=== PATIENT | male | born 1950 | race Caucasian/White ===

== ENCOUNTER 2016-06-06 13:28 | Inpatient (IN) | payer OTHER ==
[2016-06-06 19:08] VITALS: BMI 23.6
--- NOTE | 2016-06-06 20:57 | HP ---
CIWA Score - CIWA Score Nausea/Vomitin-Mild Nausea/No Vomiting Muscle Tremors: 4-Moderate,w/Arms Extend Anxiety: 4-Mod. Anxious/Guarded Agitation: 4-Moderately Restless Paroxysmal Sweats: 1-Minimal Palms Moist Orientation: 3-Disoriented Date>2 days Tacttile Disturbances: 0-None Auditory Disturbances: 0-None Visual Disturbances: 0-None Headache: 0-None Present CIWA-Ar Total Score: 17 Admission ROS S - HPI Chief Complaint: WITHDRAWAL SX Allergies/Adverse Reactions: Allergies Allergy/AdvReac Type Severity Reaction Status Date / Time No Known Allergies Allergy Verified 06/06/16 19:22 History of Present Illness: 65 YEARS OLD MALE WITH LONG HISTORY OF ALCOHOL NICOTINE DEPENDENCE HAS ASTHMA DRY SKIN CANE FOR AMBULATION IS ADMITTED TO DETOX Exam Limitations: No Limitations - Ebola screening Have you traveled outside of the country in the last 21 days: No Have you had contact with anyone from an Ebola affected area: No Have you been sick,other than usual withdrawal symptoms: No Do you have a fever: No - Review of Systems Constitutional: Chills, Changes in sleep, Weight Stable EENT: reports: No Symptoms Reported Respiratory: reports: SOB with Exertion, Productive cough (YELLOWISH) Cardiac: reports: No Symptoms Reported GI: reports: Nausea, Poor Fluid Intake, Abdominal cramping : reports: No Symptoms Reported Musculoskeletal: reports: Joint Pain (LEFT ANKLE TO LEFT KNEE TO LEFT HIP) Integumentary: reports: Change in Color (HYPERPIGMENTATION BOTH HANDS AND RIGHT LOWER LEG) Neuro: reports: Tremors Endocrine: reports: No Symptoms Reported Hematology: reports: No Symptoms Reported Psychiatric: reports: Judgement Intact, Mood/Affect Appropiate Other Systems: Reviewed and Negative Patient History - Patient Medical History Hx Anemia: No Hx Asthma: Yes (Pt is on MDI) Hx Chronic Obstructive Pulmonary Disease (COPD): Yes Hx Cancer: No Hx Cardiac Disorders: No Hx Congestive Heart Failure: No Hx Hypertension: No Hx Hypercholesterolemia: No Hx Pacemaker: No HX Cerebrovascular Accident: No Hx Seizures: No Hx Dementia: No Hx Diabetes: No Hx Gastrointestinal Disorders: No Hx Liver Disease: No Hx Genitourinary Disorders: No Hx Sexually Transmitted Disorders: No Hx Renal Disease (ESRD): No Hx Thyroid Disease: No Hx Human Immunodeficiency Virus (HIV): No Hx Hepatitis C: No Hx Depression: No Hx Suicide Attempt: No Hx Bipolar Disorder: No Hx Schizophrenia: No - Patient Surgical History Past Surgical History: Yes Hx Neurologic Surgery: No Hx Cataract Extraction: No Hx Cardiac Surgery: No Hx Lung Surgery: No Hx Breast Surgery: No Hx Breast Biopsy: No Hx Abdominal Surgery: No Hx Appendectomy: No Hx Cholecystectomy: No Hx Genitourinary Surgery: No Hx Orthopedic Surgery: Yes (L foot fx and R elbow fx [id number]) Anesthesia Reaction: No - PPD History Previous Implant?: Yes Documented Results: Negative w/o proof Implanted On Prior [facility] Admission?: No PPD to be Administered?: Yes - Smoking Cessation Smoking history: Current every day smoker Have you smoked in the past 12 months: Yes Aproximately how many cigarettes per day: 30 Cigars Per Day: 0 Hx Chewing Tobacco Use: No Initiated information on smoking cessation: Yes 'Breaking Loose' booklet given: 06/06/16 - Substance & Tx. History Hx Alcohol Use: Yes Hx Substance Use: Yes Substance Use Type: Alcohol, Heroin Hx Substance Use Treatment: Yes - Substances Abused Alcohol Route: Oral Frequency: Daily Amount used: 4-5 PINTS OF WINE +PINT BRAINDAY Age of first use: 15 Date of Last Use: 06/06/16 Family Disease History - Family Disease History Family Disease History: Diabetes: Mother, [place]: Brother (), Other: Father () Admission Physical Exam BHS - Vital Signs Vital Signs: Vital Signs - 24 hr 06/06/16 19:07 Temperature 97.1 F L Pulse Rate 75 Respiratory 18 Rate Blood Pressure 122/76 - Physical General Appearance: Yes: Appropriately Dressed, Mild Distress, Alcohol on Breath , Tremorous, Irritable, Sweating, Anxious HEENTM: Yes: Hearing grossly Normal, Normal ENT Inspection, Normocephalic, Normal Voice Respiratory: Yes: Chest Non-Tender, No Respiratory Distress, No Accessory Muscle Use Neck: Yes: Supple, Trachea in good position Breast: Yes: Breasts Symetrical Cardiology: Yes: Regular Rhythm, Regular Rate, S1, S2 Abdominal: Yes: Non Tender, Soft Genitourinary: Yes: Within Normal Limits Back: Yes: Normal Inspection Musculoskeletal: Yes: Gait Steady (CANE), Back pain, Muscle weakness (LEFT LEG) Extremities: Yes: Non-Tender, Tremors Neurological: Yes: Alert, Motor Strength 5/5, Normal Mood/Affect, Normal Response Integumentary: Yes: Warm Lymphatic: Yes: Within Normal Limits - Diagnostic (1) Alcohol dependence with uncomplicated withdrawal Current Visit: Yes Status: Acute (2) Methadone maintenance therapy patient Current Visit: Yes Status: Acute Comment: 70 MG VERIFICATION PENDING (3) Dry skin dermatitis Current Visit: Yes Status: Acute (4) Pruritus Current Visit: Yes Status: Acute (5) Use of cane as ambulatory aid Current Visit: Yes Status: Acute (6) Asthma Current Visit: Yes Status: Acute Qualifiers: Asthma severity: mild persistent Asthma complication type: with status asthmaticus Qualified Code(s): J45.32 - Mild persistent asthma with status asthmaticus (7) Weakness of left leg Current Visit: Yes Status: Acute Cleared for Admission S - Detox or Rehab [facility] Level of Care: Medically Managed Detox Regimen/Protocol: Librium [facility] Breath Alcohol Content Breath Alcohol Content: 0.177 Urine Drug Screen - Results Drug Screen Negative: No Urine Drug Screen Results: BZO-Benzodiazepines, MTD-Methadone
[2016-06-06] MEDS ORDERED: LOPERAMIDE HCL 2 MG CAPSULE PO PRN (21:13)
[2016-06-06] MEDS ORDERED: chlordiazePOXIDE HCL 25 MG CAPSULE PO ONE (21:13)
[2016-06-06] MEDS ORDERED: MENTHOL/PHENOL 1 EACH UD MM PRN (21:13)
[2016-06-06] MEDS ORDERED: IBUPROFEN 400 MG TABLET (FP) PO PRN (21:13)
[2016-06-06] MEDS ORDERED: ACETAMINOPHEN 325 MG TABLET (FP) PO PRN (21:13)
[2016-06-06] MEDS ORDERED: MAGNESIUM HYDROX 2400MG/30ML ORAL SUSPENSION 30 ML CUP PO PRN (21:13)
[2016-06-06] MEDS ORDERED: guaiFENesin/D-METHORPHAN HB 10 ML UNIT-DOSE CUPS PO PRN (21:13)
[2016-06-06] MEDS ORDERED: P-EPHED 60MG/TRIPROLIDI 2.5MG TABLET PO PRN (21:13)
[2016-06-06] MEDS ORDERED: NICOTINE POLACRILEX 4 MG GUM BC PRN (21:13)
[2016-06-06] MEDS ORDERED: MAG HYDROX/AL HYDROX/SIMETH 30 ML UNIT-DOSE CUP PO PRN (21:13)
[2016-06-06] MEDS ORDERED: diphenhydrAMINE HCL 50 MG CAPSULE PO PRN (21:13)
[2016-06-06] MEDS ORDERED: chlordiazePOXIDE HCL 25 MG CAPSULE PO PRN (21:13)
[2016-06-06] MEDS ORDERED: MAGNESIUM CITRATE 300 ML BOTTLE PO PRN (21:13)
[2016-06-06] MEDS ORDERED: ALBUTEROL SO4 6.7 GM HFA INHALER IH PRN (21:15)
[2016-06-06] MEDS ORDERED: COLLOIDAL OATMEAL 1 BAR EACH TP PRN (21:17)
[2016-06-06] MEDS: THIAMINE HCL 100 MG TABLET (FP) PO SCH (21:49)
[2016-06-06] MEDS: AMMONIUM LACTATE 12% LOTION 225 GM BOTTLE TP SCH (21:56)
[2016-06-06] MEDS: MINERAL OIL/PETROLAT/WATER TOPICAL CREAM 113 GM JAR TP SCH (21:56)
[2016-06-06] MEDS: chlordiazePOXIDE HCL 25 MG CAPSULE PO SCH (23:01)
[2016-06-07 01:04] LABS: URINE APPEARANCE CLEAR; URINE BILIRUBIN NEGATIVE (NEGATIVE); URINE BLOOD NEGATIVE (NEGATIVE); URINE COLOR AMBER; URINE GLUCOSE (UA) NEGATIVE (NEGATIVE); URINE KETONE NEGATIVE (NEGATIVE); URINE LEUK ESTERASE NEGATIVE (NEGATIVE); URINE NITRITE NEGATIVE (NEGATIVE); URINE PROTEIN NEGATIVE (NEGATIVE); URINE UROBILINOGEN 4.0 E.U/dl E.U./dl (0.2-1.0)
[2016-06-07] MEDS: chlordiazePOXIDE HCL 25 MG CAPSULE PO SCH ×4 (05:51→22:03)
[2016-06-07] MEDS ORDERED: METHADONE HCL 10 MG TABLET PO ONE (08:20)
[2016-06-07] MEDS ORDERED: METHADONE 40 MG, METHADONE 30 MG PO ONE (08:25)
[2016-06-07] MEDS ORDERED: METHADONE HCL 10 MG TABLET ONE (09:38)
[2016-06-07] MEDS ORDERED: METHADONE HCL 40 MG DISPERSABLE TABLET ONE (09:39)
[2016-06-07 09:50] LABS: MCH 35.2 pg (25.7-33.7); MCHC 33.2 g/dl (32.0-35.9); MEAN PLT VOLUME 11.4 fl (7.5-11.1); PLATELET COUNT 91 K/MM3 (134-434); RDW 15.9 % (11.9-15.9); WHITE BLOOD COUNT 5.7 K/mm3 (4.0-10.0)
[2016-06-07 10:08] LABS: ALK PHOS 638 U/L (45-117); ANION GAP 9 (8-16); BILIRUBIN,TOTAL 0.9 mg/dL (0.2-1.0); CALCIUM 7.7 mg/dL (8.5-10.1); CO2 28 mmol/L (21-32); COCKROFT - GAULT 111.8; CREATININE 0.6 mg/dL (0.7-1.3); GLUCOSE,RANDOM 73 mg/dL (74-106); SGOT/AST 165 U/L (15-37); SGPT/ALT 61 U/L (12-78)
--- NOTE | 2016-06-07 10:53 | PN ---
[facility] CIWA - CIWA Score Nausea/Vomitin-No Nausea/No Vomiting Muscle Tremors: 4-Moderate,w/Arms Extend Anxiety: 4-Mod. Anxious/Guarded Agitation: 4-Moderately Restless Paroxysmal Sweats: 1-Minimal Palms Moist Orientation: 0-Oriented Tacttile Disturbances: 3-Moderate Itch/Numb/Burn Auditory Disturbances: 0-None Visual Disturbances: 0-None Headache: 0-None Present CIWA-Ar Total Score: 16 S Progress Note (SOAP) Subjective: ANXIETY,SWEATS/CHILLS,TREMORS,INTERMITTENT SLEEP Objective: 06/07/16 10:53 Vital Signs Temperature 98.5 F 06/07/16 09:27 Pulse Rate 90 06/07/16 09:27 Respiratory Rate 20 06/07/16 09:27 Blood Pressure 112/70 06/07/16 09:27 O2 Sat by Pulse Oximetry (%) Laboratory Last Values WBC 5.7 K/mm3 (4.0-10.0) 06/07/16 06:00 RBC 3.49 M/mm3 (4.00-5.60) L 06/07/16 06:00 Hgb 12.3 GM/dL (11.7-16.9) 06/07/16 06:00 Hct 37.0 % (35.4-49) 06/07/16 06:00 MCV 106.0 fl (80-96) H 06/07/16 06:00 MCHC 33.2 g/dl (32.0-35.9) 06/07/16 06:00 RDW 15.9 % (11.9-15.9) 06/07/16 06:00 Plt Count 91 K/MM3 (134-434) L 06/07/16 06:00 MPV 11.4 fl (7.5-11.1) H 06/07/16 06:00 Sodium 141 mmol/L (136-145) 06/07/16 06:00 Potassium 3.6 mmol/L (3.5-5.1) 06/07/16 06:00 Chloride 104 mmol/L (98-107) 06/07/16 06:00 Carbon Dioxide 28 mmol/L (21-32) 06/07/16 06:00 Anion Gap 9 (8-16) 06/07/16 06:00 BUN 13 mg/dL (7-18) 06/07/16 06:00 Creatinine 0.6 mg/dL (0.7-1.3) L 06/07/16 06:00 Creat Clearance w eGFR > 60 (>60) 06/07/16 06:00 Random Glucose 73 mg/dL (74-106) L 06/07/16 06:00 Calcium 7.7 mg/dL (8.5-10.1) L 06/07/16 06:00 Total Bilirubin 0.9 mg/dL (0.2-1.0) 06/07/16 06:00 AST 165 U/L (15-37) H 06/07/16 06:00 ALT 61 U/L (12-78) 06/07/16 06:00 Alkaline Phosphatase 638 U/L (45-117) H 06/07/16 06:00 Total Protein 7.0 g/dl (6.4-8.2) 06/07/16 06:00 Albumin 3.0 g/dl (3.4-5.0) L 06/07/16 06:00 Urine Color [place] 06/06/16 23:02 Urine Appearance Clear 06/06/16 23:02 Urine pH 5.0 (5.0-8.0) 06/06/16 23:02 Ur Specific [place] 1.026 (1.001-1.035) 06/06/16 23:02 Urine Protein Negative (NEGATIVE) 06/06/16 23:02 Urine Glucose (UA) Negative (NEGATIVE) 06/06/16 23:02 Urine Ketones Negative (NEGATIVE) 06/06/16 23:02 Urine Blood Negative (NEGATIVE) 06/06/16 23:02 Urine Nitrite Negative (NEGATIVE) 06/06/16 23:02 Urine Bilirubin Negative (NEGATIVE) 06/06/16 23:02 Urine Urobilinogen 4.0 e.u/dl E.U./dl (0.2-1.0) 06/06/16 23:02 Ur Leukocyte Esterase Negative (NEGATIVE) 06/06/16 23:02 Assessment: 06/07/16 10:53 WITHDRAWAL SX Plan: CONTINUE DETOX
--- NOTE | 2016-06-07 11:48 | EKG ---
Test Reason : Blood Pressure : / mmHG Vent. Rate : 075 BPM Atrial Rate : 075 BPM P-R Int : 154 ms QRS Dur : 090 ms QT Int : 444 ms P-R-T Axes : 082 -04 -27 degrees QTc Int : 495 ms NORMAL SINUS RHYTHM LOW VOLTAGE QRS NONSPECIFIC ST ABNORMALITY PROLONGED QT ABNORMAL ECG NO PREVIOUS ECGS AVAILABLE Confirmed by JONATHAN KOVACS MD ([id number]) on 06/07/2016 11:47:51 AM Referred By: Confirmed By:JONATHAN KOVACS MD
[2016-06-07] MEDS: AMMONIUM LACTATE 12% LOTION 225 GM BOTTLE TP SCH ×2 (12:00→21:47)
[2016-06-07] MEDS: NICOTINE 21 MG/24 HOURS TOPICAL PATCH TD SCH (12:01)
[2016-06-07] MEDS: PRENATAL VITAMINS W/ FOLIC ACID TABLET (FP) PO SCH (12:01)
[2016-06-07] MEDS: MINERAL OIL/PETROLAT/WATER TOPICAL CREAM 113 GM JAR TP SCH (21:47)
[2016-06-07] MEDS: THIAMINE HCL 100 MG TABLET (FP) PO SCH (21:48)
[2016-06-08] MEDS ORDERED: METHADONE HCL 10 MG TABLET ONE (05:13)
[2016-06-08] MEDS ORDERED: METHADONE HCL 40 MG DISPERSABLE TABLET ONE (05:13)
[2016-06-08] MEDS ORDERED: METHADONE HCL 10 MG TABLET PO SCH (06:00)
[2016-06-08] MEDS: METHADONE 40 MG, METHADONE 30 MG PO SCH (06:28)
[2016-06-08] MEDS: chlordiazePOXIDE HCL 25 MG CAPSULE PO SCH ×3 (06:28→18:01)
[2016-06-08] MEDS: PRENATAL VITAMINS W/ FOLIC ACID TABLET (FP) PO SCH (10:22)
[2016-06-08] MEDS: NICOTINE 21 MG/24 HOURS TOPICAL PATCH TD SCH (10:24)
[2016-06-08] MEDS: AMMONIUM LACTATE 12% LOTION 225 GM BOTTLE TP SCH ×2 (10:24→23:17)
--- NOTE | 2016-06-08 13:40 | PN ---
[facility] CIWA - CIWA Score Nausea/Vomitin-No Nausea/No Vomiting Muscle Tremors: 4-Moderate,w/Arms Extend Anxiety: 4-Mod. Anxious/Guarded Agitation: 3 Paroxysmal Sweats: 3 Orientation: 0-Oriented Tacttile Disturbances: 1-Very Mild Itch/Numbness Auditory Disturbances: 0-None Visual Disturbances: 0-None Headache: 0-None Present CIWA-Ar Total Score: 15 BHS Progress Note (SOAP) Subjective: Anxiety,tremors,sweating,interrupted sleep,restless Objective: 06/08/16 13:39 Vital Signs - 8 hr 06/08/16 06/08/16 06:46 10:39 Temperature 96.2 F L 96.8 F L Pulse Rate 74 77 Respiratory 18 18 Rate Blood Pressure 127/75 114/69 Laboratory Last Values WBC 5.7 K/mm3 (4.0-10.0) 06/07/16 06:00 RBC 3.49 M/mm3 (4.00-5.60) L 06/07/16 06:00 Hgb 12.3 GM/dL (11.7-16.9) 06/07/16 06:00 Hct 37.0 % (35.4-49) 06/07/16 06:00 MCV 106.0 fl (80-96) H 06/07/16 06:00 MCHC 33.2 g/dl (32.0-35.9) 06/07/16 06:00 RDW 15.9 % (11.9-15.9) 06/07/16 06:00 Plt Count 91 K/MM3 (134-434) L 06/07/16 06:00 MPV 11.4 fl (7.5-11.1) H 06/07/16 06:00 Sodium 141 mmol/L (136-145) 06/07/16 06:00 Potassium 3.6 mmol/L (3.5-5.1) 06/07/16 06:00 Chloride 104 mmol/L (98-107) 06/07/16 06:00 Carbon Dioxide 28 mmol/L (21-32) 06/07/16 06:00 Anion Gap 9 (8-16) 06/07/16 06:00 BUN 13 mg/dL (7-18) 06/07/16 06:00 Creatinine 0.6 mg/dL (0.7-1.3) L 06/07/16 06:00 Creat Clearance w eGFR > 60 (>60) 06/07/16 06:00 Random Glucose 73 mg/dL (74-106) L 06/07/16 06:00 Calcium 7.7 mg/dL (8.5-10.1) L 06/07/16 06:00 Total Bilirubin 0.9 mg/dL (0.2-1.0) 06/07/16 06:00 AST 165 U/L (15-37) H 06/07/16 06:00 ALT 61 U/L (12-78) 06/07/16 06:00 Alkaline Phosphatase 638 U/L (45-117) H 06/07/16 06:00 Total Protein 7.0 g/dl (6.4-8.2) 06/07/16 06:00 Albumin 3.0 g/dl (3.4-5.0) L 06/07/16 06:00 Urine Color Diana 06/06/16 23:02 Urine Appearance Clear 06/06/16 23:02 Urine pH 5.0 (5.0-8.0) 06/06/16 23:02 Ur Specific [place] 1.026 (1.001-1.035) 06/06/16 23:02 Urine Protein Negative (NEGATIVE) 06/06/16 23:02 Urine Glucose (UA) Negative (NEGATIVE) 06/06/16 23:02 Urine Ketones Negative (NEGATIVE) 06/06/16 23:02 Urine Blood Negative (NEGATIVE) 06/06/16 23:02 Urine Nitrite Negative (NEGATIVE) 06/06/16 23:02 Urine Bilirubin Negative (NEGATIVE) 06/06/16 23:02 Urine Urobilinogen 4.0 e.u/dl E.U./dl (0.2-1.0) 06/06/16 23:02 Ur Leukocyte Esterase Negative (NEGATIVE) 06/06/16 23:02 RPR Titer Nonreactive (NONREACTIVE) 06/07/16 06:00 labs noted Assessment: 06/08/16 13:39 Withdrawal sx. Plan: Continue detox
--- NOTE | 2016-06-08 17:03 | CONSULT ---
[facility] Psychiatric Consult - Data Date of interview: 06/08/16 Admission source: [facility] Identifying data: First admission to [facility] for this 65 y/0 male seeking detox treatment for alcohol and opioid dependence.Patient is ,a father of seven,domiciled (lives with daughter),disabled and supported on SSI benefits. Substance Abuse History: - Smoking Cessation. Smoking history: Current every day smoker. Have you smoked in the past 12 months: Yes. Aproximately how many cigarettes per day: 30. Cigars Per Day: 0. Hx Chewing Tobacco Use: No. Initiated information on smoking cessation: Yes. 'Breaking Loose' booklet given : 06/06/16. - Substance & Tx. History. Hx Alcohol Use: Yes. Hx Substance Use : Yes. Substance Use Type: Alcohol, Heroin. Hx Substance Use Treatment: Yes. - Substances Abused. Alcohol. Route: Oral. Frequency: Daily. Amount used : 4-5 PINTS OF WINE +PINT BRAINDAY. Age of first use: 15. Date of Last Use: . Confirmed by the patient. Medical History: Bronchial asthma and bilateral edema of lower extremities.Noted deformation of left foot and history of orthosurgery for fracture of right elbow/left foot (2008). Psychiatric History: Patient denies. Physical/Sexual Abuse/Trauma History: Patient denies. Additional Comment: Urine Drug Screen Results: BZO-Benzodiazepines, MTD- Methadone.Noted. Mental Status Exam - Mental Status Exam Alert and Oriented to: Time (partial orientation : month,day of week .Incorrect about year : 2015 instead of 2016), Place, Person Cognitive Function: Good Patient Appearance: Unkempt, Disheveled (looks older than stated age,short stature,overweight) Mood: Sad, Anxious, Apprehensive Affect: Constricted Patient Behavior: Sedated (light sedation), Fatigued Speech Pattern: Delayed, Slurred Voice Loudness: Moderately Soft/Quiet Thought Process: Goal Oriented Hallucinations: Denies Suicidal Ideation: Denies Homicidal Ideation: Denies Insight/Judgement: Poor Sleep: Fair Appetite: Good Gait/Station: Other (walks with a cane) Psychiatric Findings - Problem List ([place] 1, 2,3) (1) Alcohol dependence with uncomplicated withdrawal Current Visit: Yes Status: Acute (2) Opioid dependence on agonist therapy Current Visit: Yes Status: Acute (3) Nicotine dependence Current Visit: Yes Status: Acute (4) Asthma Current Visit: Yes Status: Chronic Qualifiers: Asthma severity: mild persistent Asthma complication type: with status asthmaticus Qualified Code(s): J45.32 - Mild persistent asthma with status asthmaticus (5) Dry skin dermatitis Current Visit: Yes Status: Chronic (6) Weakness of left leg Current Visit: Yes Status: Chronic (7) Use of cane as ambulatory aid Current Visit: Yes Status: Chronic - Initial Treatment Plan Initial Treatment Plan: Psychoeducation.Detoxification.Observation.Fall precautions (wheelchair made available to the patient).
[2016-06-08] MEDS: MINERAL OIL/PETROLAT/WATER TOPICAL CREAM 113 GM JAR TP SCH (23:17)
[2016-06-08] MEDS: chlordiazePOXIDE 5 MG CAPSULE PO SCH (23:18)
[2016-06-08] MEDS: THIAMINE HCL 100 MG TABLET (FP) PO SCH (23:18)
[2016-06-09] MEDS ORDERED: METHADONE HCL 40 MG DISPERSABLE TABLET ONE (04:40)
[2016-06-09] MEDS ORDERED: METHADONE HCL 10 MG TABLET ONE (04:40)
[2016-06-09] MEDS: chlordiazePOXIDE 5 MG CAPSULE PO SCH ×3 (06:13→17:51)
[2016-06-09] MEDS: METHADONE 40 MG, METHADONE 30 MG PO SCH (06:13)
[2016-06-09] MEDS: NICOTINE 21 MG/24 HOURS TOPICAL PATCH TD SCH (10:41)
[2016-06-09] MEDS: AMMONIUM LACTATE 12% LOTION 225 GM BOTTLE TP SCH ×2 (10:41→22:48)
[2016-06-09] MEDS: PRENATAL VITAMINS W/ FOLIC ACID TABLET (FP) PO SCH (10:41)
--- NOTE | 2016-06-09 17:42 | PN ---
BHS Progress Note (SOAP) Subjective: Stomach cramping, H/A, Sweating, Body Aches, Interrupted sleep. Objective: PT. A & OX 2 (DISORIENTED ABOUT DAY / DATE). PT. OBSERVED AMBULATING ON UNIT. 06/09/16 17:41 Vital Signs Temperature 98.0 F 06/09/16 14:03 Pulse Rate 100 H 06/09/16 14:03 Respiratory Rate 20 06/09/16 14:03 Blood Pressure 98/68 06/09/16 14:03 O2 Sat by Pulse Oximetry (%) Laboratory Last Values WBC 5.7 K/mm3 (4.0-10.0) 06/07/16 06:00 RBC 3.49 M/mm3 (4.00-5.60) L 06/07/16 06:00 Hgb 12.3 GM/dL (11.7-16.9) 06/07/16 06:00 Hct 37.0 % (35.4-49) 06/07/16 06:00 MCV 106.0 fl (80-96) H 06/07/16 06:00 MCHC 33.2 g/dl (32.0-35.9) 06/07/16 06:00 RDW 15.9 % (11.9-15.9) 06/07/16 06:00 Plt Count 91 K/MM3 (134-434) L 06/07/16 06:00 MPV 11.4 fl (7.5-11.1) H 06/07/16 06:00 Sodium 141 mmol/L (136-145) 06/07/16 06:00 Potassium 3.6 mmol/L (3.5-5.1) 06/07/16 06:00 Chloride 104 mmol/L (98-107) 06/07/16 06:00 Carbon Dioxide 28 mmol/L (21-32) 06/07/16 06:00 Anion Gap 9 (8-16) 06/07/16 06:00 BUN 13 mg/dL (7-18) 06/07/16 06:00 Creatinine 0.6 mg/dL (0.7-1.3) L 06/07/16 06:00 Creat Clearance w eGFR > 60 (>60) 06/07/16 06:00 Random Glucose 73 mg/dL (74-106) L 06/07/16 06:00 Calcium 7.7 mg/dL (8.5-10.1) L 06/07/16 06:00 Total Bilirubin 0.9 mg/dL (0.2-1.0) 06/07/16 06:00 AST 165 U/L (15-37) H 06/07/16 06:00 ALT 61 U/L (12-78) 06/07/16 06:00 Alkaline Phosphatase 638 U/L (45-117) H 06/07/16 06:00 Total Protein 7.0 g/dl (6.4-8.2) 06/07/16 06:00 Albumin 3.0 g/dl (3.4-5.0) L 06/07/16 06:00 Urine Color Diana 06/06/16 23:02 Urine Appearance Clear 06/06/16 23:02 Urine pH 5.0 (5.0-8.0) 06/06/16 23:02 Ur Specific [place] 1.026 (1.001-1.035) 06/06/16 23:02 Urine Protein Negative (NEGATIVE) 06/06/16 23:02 Urine Glucose (UA) Negative (NEGATIVE) 06/06/16 23:02 Urine Ketones Negative (NEGATIVE) 06/06/16 23:02 Urine Blood Negative (NEGATIVE) 06/06/16 23:02 Urine Nitrite Negative (NEGATIVE) 06/06/16 23:02 Urine Bilirubin Negative (NEGATIVE) 06/06/16 23:02 Urine Urobilinogen 4.0 e.u/dl E.U./dl (0.2-1.0) 06/06/16 23:02 Ur Leukocyte Esterase Negative (NEGATIVE) 06/06/16 23:02 RPR Titer Nonreactive (NONREACTIVE) 06/07/16 06:00 LABS NOTED. Assessment: 06/09/16 17:42 WITHDRAWAL SYMPTOMS. Plan: CONTINUE DETOX. ADVISED PATIENT TO FOLLOW-UP WITH [facility] / REHAB MEDICAL PROVIDER AFTER DISCHARGE FROM DETOX FOR GENERAL MEDICAL ASSESSMENT AND FOR ABNORMAL ADMISSION LAB VALUES.
[2016-06-09] MEDS: MINERAL OIL/PETROLAT/WATER TOPICAL CREAM 113 GM JAR TP SCH (22:47)
[2016-06-09] MEDS: chlordiazePOXIDE HCL 10 MG CAPSULE PO SCH (22:47)
[2016-06-09] MEDS: THIAMINE HCL 100 MG TABLET (FP) PO SCH (22:47)
[2016-06-10] MEDS ORDERED: METHADONE HCL 10 MG TABLET ONE (04:12)
[2016-06-10] MEDS ORDERED: METHADONE HCL 40 MG DISPERSABLE TABLET ONE (04:13)
[2016-06-10] MEDS: METHADONE 40 MG, METHADONE 30 MG PO SCH (05:51)
[2016-06-10] MEDS: chlordiazePOXIDE HCL 10 MG CAPSULE PO SCH ×3 (05:51→22:52)
[2016-06-10] MEDS: PRENATAL VITAMINS W/ FOLIC ACID TABLET (FP) PO SCH (10:54)
[2016-06-10] MEDS: NICOTINE 21 MG/24 HOURS TOPICAL PATCH TD SCH (10:55)
[2016-06-10] MEDS: AMMONIUM LACTATE 12% LOTION 225 GM BOTTLE TP SCH ×2 (10:55→22:52)
--- NOTE | 2016-06-10 12:11 | PN ---
BHS Progress Note (SOAP) Subjective: nausa, sweats, interruptedd sleep, anxiety, tremors Objective: 06/10/16 12:09 Vital Signs - 8 hr 06/10/16 06/10/16 06:19 10:48 Temperature 98.5 F 97.1 F L Pulse Rate 93 H 90 Respiratory 16 18 Rate Blood Pressure 120/65 121/62 Laboratory Tests 06/06/16 06/07/16 06/07/16 23:02 06:00 06:00 WBC 5.7 RBC 3.49 L Hgb 12.3 Hct 37.0 MCV 106.0 H MCHC 33.2 RDW 15.9 Plt Count 91 L MPV 11.4 H Sodium 141 Potassium 3.6 Chloride 104 Carbon Dioxide 28 Anion Gap 9 BUN 13 Creatinine 0.6 L Creat Clearance w eGFR > 60 Random Glucose 73 L Calcium 7.7 L Total Bilirubin 0.9 AST 165 H ALT 61 Alkaline Phosphatase 638 H Total Protein 7.0 Albumin 3.0 L Urine Color Diana Urine Appearance Clear Urine pH 5.0 Ur Specific [place] 1.026 Urine Protein Negative Urine Glucose (UA) Negative Urine Ketones Negative Urine Blood Negative Urine Nitrite Negative Urine Bilirubin Negative Urine Urobilinogen 4.0 e.u/dl Ur Leukocyte Esterase Negative RPR Titer 06/07/16 06:00 WBC RBC Hgb Hct MCV MCHC RDW Plt Count MPV Sodium Potassium Chloride Carbon Dioxide Anion Gap BUN Creatinine Creat Clearance w eGFR Random Glucose Calcium Total Bilirubin AST ALT Alkaline Phosphatase Total Protein Albumin Urine Color Urine Appearance Urine pH Ur Specific [place] Urine Protein Urine Glucose (UA) Urine Ketones Urine Blood Urine Nitrite Urine Bilirubin Urine Urobilinogen Ur Leukocyte Esterase RPR Titer Nonreactive elevated lfts, hypoalbuminemia Assessment: 06/10/16 12:10 withdrawal sx, malnutirtion 2/2 substance use Plan: cont detox, dietary advice given, ensure, fluids, encourage ambulation
[2016-06-10] MEDS: THIAMINE HCL 100 MG TABLET (FP) PO SCH (22:52)
[2016-06-10] MEDS: MINERAL OIL/PETROLAT/WATER TOPICAL CREAM 113 GM JAR TP SCH (22:52)
[2016-06-11] MEDS ORDERED: METHADONE HCL 10 MG TABLET ONE (04:15)
[2016-06-11] MEDS ORDERED: METHADONE HCL 40 MG DISPERSABLE TABLET ONE (04:15)
[2016-06-11] MEDS: METHADONE 40 MG, METHADONE 30 MG PO SCH (06:10)
[2016-06-11 06:33] VITALS: BP 132/83; PULSE 82; TEMP 98.9
--- NOTE | 2016-06-11 08:46 | DS ---
[facility] Detox Discharge Summary Admission Date: 06/06/16 Discharge Date: 06/11/16 - History Present History: Alcohol Dependence, MMTP Pertinent Past History: Asthma dry skin - Physical Exam Results Vital Signs: Vital Signs Temperature 98.9 F 06/11/16 06:33 Pulse Rate 82 06/11/16 06:33 Respiratory Rate 18 06/11/16 06:33 Blood Pressure 132/83 06/11/16 06:33 O2 Sat by Pulse Oximetry (%) Pertinent Admission Physical Exam Findings: Withdrawal sx. Laboratory Last Values WBC 5.7 K/mm3 (4.0-10.0) 06/07/16 06:00 RBC 3.49 M/mm3 (4.00-5.60) L 06/07/16 06:00 Hgb 12.3 GM/dL (11.7-16.9) 06/07/16 06:00 Hct 37.0 % (35.4-49) 06/07/16 06:00 MCV 106.0 fl (80-96) H 06/07/16 06:00 MCHC 33.2 g/dl (32.0-35.9) 06/07/16 06:00 RDW 15.9 % (11.9-15.9) 06/07/16 06:00 Plt Count 91 K/MM3 (134-434) L 06/07/16 06:00 MPV 11.4 fl (7.5-11.1) H 06/07/16 06:00 Sodium 141 mmol/L (136-145) 06/07/16 06:00 Potassium 3.6 mmol/L (3.5-5.1) 06/07/16 06:00 Chloride 104 mmol/L (98-107) 06/07/16 06:00 Carbon Dioxide 28 mmol/L (21-32) 06/07/16 06:00 Anion Gap 9 (8-16) 06/07/16 06:00 BUN 13 mg/dL (7-18) 06/07/16 06:00 Creatinine 0.6 mg/dL (0.7-1.3) L 06/07/16 06:00 Creat Clearance w eGFR > 60 (>60) 06/07/16 06:00 Random Glucose 73 mg/dL (74-106) L 06/07/16 06:00 Calcium 7.7 mg/dL (8.5-10.1) L 06/07/16 06:00 Total Bilirubin 0.9 mg/dL (0.2-1.0) 06/07/16 06:00 AST 165 U/L (15-37) H 06/07/16 06:00 ALT 61 U/L (12-78) 06/07/16 06:00 Alkaline Phosphatase 638 U/L (45-117) H 06/07/16 06:00 Total Protein 7.0 g/dl (6.4-8.2) 06/07/16 06:00 Albumin 3.0 g/dl (3.4-5.0) L 06/07/16 06:00 Urine Color Diana 06/06/16 23:02 Urine Appearance Clear 06/06/16 23:02 Urine pH 5.0 (5.0-8.0) 06/06/16 23:02 Ur Specific [place] 1.026 (1.001-1.035) 06/06/16 23:02 Urine Protein Negative (NEGATIVE) 06/06/16 23:02 Urine Glucose (UA) Negative (NEGATIVE) 06/06/16 23:02 Urine Ketones Negative (NEGATIVE) 06/06/16 23:02 Urine Blood Negative (NEGATIVE) 06/06/16 23:02 Urine Nitrite Negative (NEGATIVE) 06/06/16 23:02 Urine Bilirubin Negative (NEGATIVE) 06/06/16 23:02 Urine Urobilinogen 4.0 e.u/dl E.U./dl (0.2-1.0) 06/06/16 23:02 Ur Leukocyte Esterase Negative (NEGATIVE) 06/06/16 23:02 RPR Titer Nonreactive (NONREACTIVE) 06/07/16 06:00 labs noted - Treatment Hospital Course: Detox Protocol Followed, Detoxed Safely, Responded well, Discharged Condition Good, Rehab Referral Accepted Patient has Accepted a Rehab Referral to: 12 step meetings - Medication Discharge Medications: Ambulatory Orders Albuterol Sulfate Inhaler - [Ventolin Hfa Inhaler -] 2 inh PO Q4H PRN 06/06/16 - Diagnosis (1) Alcohol dependence with uncomplicated withdrawal Current Visit: Yes Status: Acute (2) Nicotine dependence Current Visit: Yes Status: Acute Qualifiers: Nicotine product type: cigarettes Substance use status: uncomplicated Qualified Code(s): F17.210 - Nicotine dependence, cigarettes, uncomplicated (3) Opioid dependence on agonist therapy Current Visit: Yes Status: Acute (4) Asthma Current Visit: Yes Status: Chronic Qualifiers: Asthma severity: mild persistent Asthma complication type: with status asthmaticus Qualified Code(s): J45.32 - Mild persistent asthma with status asthmaticus (5) Dry skin dermatitis Current Visit: Yes Status: Chronic (6) Use of cane as ambulatory aid Current Visit: Yes Status: Chronic - AMA Did Patient Leave Against Medical Advice: No
[2016-06-11] MEDS: PRENATAL VITAMINS W/ FOLIC ACID TABLET (FP) PO SCH (10:05)
[2016-06-11] MEDS: NICOTINE 21 MG/24 HOURS TOPICAL PATCH TD SCH (10:05)
== END 2016-06-11 11:12 | disposition home or self-care (01) | DRG 897 ==
LOC: YASAS 13:28 → Y3N 19:41
PROVIDERS: ADMIT Internal Medicine; ATTEND Internal Medicine
PROC: HZ2ZZZZ Detoxification Services for Substance Abuse Treatment (ICD-10-PCS; principal; 2016-06-06)
DX: F10.230 Alcohol dependence with withdrawal, uncomplicated (principal); F11.20 Opioid dependence, uncomplicated; J45.32 Mild persistent asthma with status asthmaticus; F17.210 Nicotine dependence, cigarettes, uncomplicated; J44.9 Chronic obstructive pulmonary disease, unspecified; L85.3 Xerosis cutis; R26.2 Difficulty in walking, not elsewhere classified; R94.5 Abnormal results of liver function studies; E88.09 Other disorders of plasma-protein metabolism, not elsewhere classified
CPT/HCPCS: 36415; 80053; 81003; 85027; 86593; 93005; 93010